=== PATIENT | female | born 1965 | race Caucasian/White ===

== ENCOUNTER 2018-09-19 15:06 | Emergency (ER) | payer MEDICAID ==
[~2018-09-19] VITALS: Ht 157.5 cm; Wt 76.1 kg
[~2018-09-19 15:06] MED LIST: GLIM2TAB2 PO; LOSA1TAB19 PO; METF500T27 PO
[2018-09-19 15:09] VITALS: BP 103/72
--- NOTE | 2018-09-19 15:23 | NUR ---
PT REPORTS PAINFUL URINATION X THREE DAYS. +CHILLS TODAY. DENIES FEVER/N/V/FLANK PAIN/PELVIC PAIN. HX OF DM. UA COLLECTED AND SENT TO LAB.
[2018-09-19 15:37] LABS: MICROSCOPIC AUTO
[2018-09-19 15:39] LABS: CULTURE INDICATED? YES
--- NOTE | 2018-09-19 16:30 | NUR ---
DC EDUCATION PROVIDED, PT DEMONSTRATES UNDERSTANDING. PT AMBULATED STEAIDLY TO DC WITH RN
== END 2018-09-19 16:40 | disposition home or self-care (01) ==
LOC: ED 15:25
DX: N30.01 Acute cystitis with hematuria (principal); E11.9 Type 2 diabetes mellitus without complications; Z90.49 Acquired absence of other specified parts of digestive tract
CPT/HCPCS: 81001; 87086; 99283

== ENCOUNTER 2019-04-27 17:46 | Emergency (ER) | payer MEDICAID ==
[~2019-04-27] VITALS: Ht 157.5 cm; Wt 75.0 kg
[~2019-04-27 17:46] MED LIST changes: -GLIM2TAB2 PO; +GLIM2TAB3 PO
[2019-04-27 17:47] VITALS: BP 121/67
--- NOTE | 2019-04-27 18:13 | NUR ---
PT STATES SHE IS HAVING PAIN AND URGENCY TO VOID. PT DENIES N/V/D.
[2019-04-27 18:31] LABS: CULTURE INDICATED? YES; MICROSCOPIC INDICATED
[2019-04-27] MEDS ORDERED: CIPROFLOXACIN 500 MG TABLET ONE (18:56)
[2019-04-27] MEDS ORDERED: CIPROFLOXACIN 500 MG TABLET PO ONE (19:00)
== END 2019-04-27 19:07 | disposition home or self-care (01) ==
LOC: ED 18:57
DX: N30.01 Acute cystitis with hematuria (principal); E11.65 Type 2 diabetes mellitus with hyperglycemia; Z90.49 Acquired absence of other specified parts of digestive tract
CPT/HCPCS: 81001; 81025; 87077; 87086; 87186; 99283

== ENCOUNTER 2020-06-09 12:58 | Emergency (ER) | payer MEDICAID ==
[~2020-06-09] VITALS: Ht 157.5 cm; Wt 69.1 kg
[~2020-06-09 12:58] MED LIST changes: -GLIM2TAB3 PO; +GLIM2TAB7 PO
--- NOTE | 2020-06-09 13:45 | NUR ---
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
--- NOTE | 2020-06-09 13:58 | NUR ---
PT BIB VIA POV. PT STATES SHE HAS HAD COVID 16 DAYS, STILL HAS DRY COUGH AND SOB. PT RESTING IN [facility], MONITORING IN PLACE, NADN AT THIS TIME, LABS COLLECTED AND SENT TO LAB, PIV STARTED 20G IN R AC, PT DENIES CP/NAUSEA, WCTM.
[2020-06-09 14:55] LABS: BASOPHILS % (AUTO) 0 % (0-1); EOSINOPHILS % (AUTO) 0 % (1-7); LYMPHOCYTES % (AUTO) 36 % (22-44); MEAN CORPUSCULAR HGB CONC 34.7 g/dL (32.4-35.8); MEAN PLATELET VOLUME 8.4 fL (7.4-10.4); MONOCYTES % (AUTO) 9 % (2-9); NEUTROPHILS % (AUTO) 54 % (42-75); PLATELET COUNT 426 x10^3/uL (130-400); RED CELL DISTRIBUTION WIDTH 12.9 % (9.6-15.2)
[2020-06-09 15:00] LABS: ALANINE AMINOTRANSFERASE 93 U/L (12-78); ALBUMIN 3.2 g/dL (3.4-5.0); ANION GAP 10 mmol/L (5-15); CALCIUM 9.9 mg/dL (8.5-10.1); CHLORIDE 102 mmol/L (98-107); CREATININE 0.75 mg/dL (0.55-1.02); MD NO
[2020-06-09 15:08] LABS: ALKALINE PHOSPHATASE 68 U/L (45-117); BILIRUBIN,TOTAL 0.4 mg/dL (0.2-1.0); TOTAL PROTEIN 8.6 g/dL (6.4-8.2)
[2020-06-09] MEDS ORDERED: CEFTRIAXONE PMX 1GM/50ML 50 ML IVPB ONE (15:30)
[2020-06-09] MEDS ORDERED: AZITHROMYCIN 500 MG in SODIUM CHLORIDE 0.9% 250 ML IVPB ONE (15:30)
[2020-06-09 15:34] LABS: D-DIMER (DIC) 0.27 ug/mlFEU (0.00-0.52); PROTIME 11.6 Seconds (9.6-11.5)
[2020-06-09] MEDS ORDERED: CEFTRIAXONE PMX 1GM/50ML 50 ML ONE (15:42)
[2020-06-09] MEDS ORDERED: SODIUM CHLORIDE 0.9%, 500ML IVBOLUS ONE (16:00)
[2020-06-09 16:25] VITALS: BP 97/55
--- NOTE | 2020-06-09 16:32 | NUR ---
PT'S BP 97/55, SEPTIC FLOWSHEET STARTED, DR. PIÑA AWARE. 500CC NS BOLUS STARTED.
[2020-06-09] MEDS ORDERED: DEXTROSE 4 GM TAB.CHEW PO PRN (17:30)
[2020-06-09] MEDS ORDERED: CEFTRIAXONE PMX 1GM/50ML 50 ML IV SCH (17:30)
[2020-06-09] MEDS ORDERED: GLUCAGON 1 MG IM PRN (17:30)
[2020-06-09] MEDS ORDERED: DOXYCYCLINE 100 MG in DEXTROSE 5% 250 ML IV SCH (17:30)
[2020-06-09] MEDS ORDERED: DEXTROSE 50%, 50ML SYRINGE IVPush PRN (17:30)
[2020-06-09] MEDS ORDERED: ACETAMINOPHEN 325 MG TABLET PO PRN (17:30)
[2020-06-09] MEDS ORDERED: DEXAMETHASONE 4 MG/ML, 1ML IVPush SCH (17:30)
[2020-06-09] MEDS ORDERED: ONDANSETRON 2MG/ML, 2ML IVPush PRN (17:30)
[2020-06-09] MEDS ORDERED: ONDANSETRON ODT 4 MG PO PRN (17:30)
[2020-06-09] MEDS ORDERED: ENOXAPARIN 40 MG/0.4 ML SQ SCH (17:30)
[2020-06-09] MEDS ORDERED: NS + 20MEQ KCL 1,000 ML IV SCH (17:30)
--- NOTE | 2020-06-09 18:31 | NUR ---
PT STATES SHE WOULD LIKE TO LEAVE THE HOSPITAL BECAUSE IT IS "TOO LONG OF A WAIT FOR A ROOM UPSTAIRS". PT EDUCATED ON RISKS OF LEAVING HOSPITAL, ATTEMPTED TO CALL DR. [place] HOSPITAL[facility], LEFT VOICEMAIL AT THIS TIME. PT SIGNED AMA FORM. PIV REMOVED.
--- NOTE | 2020-06-09 19:08 | NUR ---
task rn: pt left ama. paperwork signed and pt sticker placed on paperwork. pt walked to lobby at this time.
[2020-06-09] MEDS ORDERED: SODIUM CHLORIDE FLUSH 10ML SYR IVF SCH (21:00)
[2020-06-09] MEDS ORDERED: INSULIN LISPRO 100 UNITS/ML, PEN SQ-INSULIN SCH (21:00)
[2020-06-10] MEDS ORDERED: ASCORBIC ACID 500 MG TABLET PO SCH (08:00)
[2020-06-10] MEDS ORDERED: CHOLECALCIFEROL 5,000u TAB PO SCH (09:00)
[2020-06-10] MEDS ORDERED: ZINC SULFATE 220 MG CAPSULE PO SCH (09:00)
[2020-06-10] MEDS ORDERED: THIAMINE 100MG TABLET PO SCH (09:00)
== END 2020-06-09 19:09 | disposition left against medical advice (07) ==
LOC: ED 16:01 → UNDOADMIN 17:23 → EDIP 17:23 → ED 19:03
DX: J12.9 Viral pneumonia, unspecified (principal); I10 Essential (primary) hypertension; E11.9 Type 2 diabetes mellitus without complications; Z90.49 Acquired absence of other specified parts of digestive tract; Z79.01 Long term (current) use of anticoagulants; Z98.51 Tubal ligation status
CPT/HCPCS: 36415; 71045; 80053; 82728; 83605; 83615; 84145; 85025; 85049; 85379; 85384; 85610; 85730; 86140; 87040; 93005; 96365; 96368; 99285; J0456; J0696; J7040; J7050; 96374; 96375